=== PATIENT | female | born 1955 | race Caucasian/White ===

== ENCOUNTER → 2017-07-16 | Outpatient (CLI) | payer OTHER ==
[~2017-07-16] MED LIST: ACCUNEB SO1.25 MG/1; ADVAIR 500-501 EACH INH; ALDACTONE50 MG PO; AMITRIPTYLINE H50 M3 PO; ASPIRIN325 PO; ATIVAN0.5 MG PO; AVINZA 30 MG CA30 MG PO; BACTRIM DS TAB1 EACH PO; CELEBREX 200 M200 MG PO; CIPROFLOXACIN500 M3 PO; CLARITIN10 MG; CLARITIN10 MG PO; COMBIVENT; CYCLOBENZAPRINE10 MG PO; CYMBALTA20 MG PO; DALIRESP500 MCG PO; DULCOLAX5 MG PO; DUONEB 2.5-0.5 M3 ML INH; EMEND PO; FISH OIL 1,001000 M2 PO; GLUMETZA500 PO; HYDROCODON-ACE1 EAC8 PO; LASIX 40 MG TAB40 M1 PO; LASIX 40 MG TAB40 M2 PO; LASIX 40 MG TAB40 MG PO; LASTACAFT3 ML; LIDODERM 5%1 PATC1 TRANSDERM; MEDI-PHEDRINE30 MG PO; MEDROL DOSPAK21 TAB PO; MIRALAX17 GM PO; MOBIC7.5 MG PO; MORPHINE SULFAT15 M3 PO; MS CONTIN15 MG PO; NAPROSYN500 MG PO; NASONEX17 GM; NASONEX17 GM NASAL; NEURONTIN 300M300 M2 PO; NORCO 5-325 TA1 EACH PO; OXYCODONE HCL5 M1 PO; POTASSIUM20 PO; PREDNISONE 20 M20 M1 PO; PREDNISONE 5 MG5 M1 PO; RANITIDINE 150150 M1 PO; RESTASIS1 EACH OPHTHALMIC; RESTORIL15 M1 PO; RESTORIL15 MG PO; ROBAXIN 750 MG750 M1 PO; SENNA-LAX8.6 MG PO; SPIRIVA INH; SUDOGEST SINUS1 EACH; TOPROL XL25 MG PO; ULTRAM 50MG TAB50 MG PO; VITAMIN D2000 UNI1 PO; ZANTAC 150MG T150 M1 PO; [UNRECOGNIZED DRUG - REMARK]
== END ==
LOC: RAD 08:43
DX: R06.02 Shortness of breath (principal)

== ENCOUNTER → 2017-09-29 | Outpatient (CLI) | payer OTHER | LOC: CAT 09:44 | DX: C34.90 Malignant neoplasm of unspecified part of unspecified bronchus or lung (principal) ==

== ENCOUNTER 2018-05-15 07:21 | Emergency (ER) | payer OTHER ==
[~2018-05-15] VITALS: Ht 167.6 cm; Wt 105.2 kg
[2018-05-15] MEDS ORDERED: KEFLEX500 M1 PO (09:18)
[2018-05-15 09:54] VITALS: BP 122/66
== END 2018-05-15 09:55 | disposition home or self-care (01) ==
LOC: ER 07:21
DX: S30.1XXA Contusion of abdominal wall, initial encounter (principal); J44.9 Chronic obstructive pulmonary disease, unspecified; E78.00 Pure hypercholesterolemia, unspecified; E28.2 Polycystic ovarian syndrome; F41.9 Anxiety disorder, unspecified; G47.30 Sleep apnea, unspecified; Z87.891 Personal history of nicotine dependence; Z88.8 Allergy status to other drugs, medicaments and biological substances; Z88.1 Allergy status to other antibiotic agents; Z90.2 Acquired absence of lung [part of]; Z85.118 Personal history of other malignant neoplasm of bronchus and lung; W18.40XA Slipping, tripping and stumbling without falling, unspecified, initial encounter; Y93.89 Activity, other specified; Y92.89 Other specified places as the place of occurrence of the external cause; Y99.8 Other external cause status

== ENCOUNTER 2018-05-22 11:31 | Emergency (ER) | payer OTHER ==
[~2018-05-22] VITALS: Ht 165.1 cm; Wt 129.3 kg
[~2018-05-22 11:31] MED LIST changes: +KEFLEX500 M1 PO
[2018-05-22] MEDS ORDERED: BACTROBAN CREAM30 G1 TOP (12:40)
[2018-05-22 14:31] VITALS: BP 114/63
== END 2018-05-22 13:50 | disposition home or self-care (01) ==
LOC: ER 11:31
DX: S93.691A Other sprain of right foot, initial encounter (principal); M25.562 Pain in left knee; J44.9 Chronic obstructive pulmonary disease, unspecified; E78.00 Pure hypercholesterolemia, unspecified; E28.2 Polycystic ovarian syndrome; F41.9 Anxiety disorder, unspecified; G47.30 Sleep apnea, unspecified; Z87.891 Personal history of nicotine dependence; Z88.8 Allergy status to other drugs, medicaments and biological substances; Z88.1 Allergy status to other antibiotic agents; Z48.01 Encounter for change or removal of surgical wound dressing; Z90.2 Acquired absence of lung [part of]; Z85.118 Personal history of other malignant neoplasm of bronchus and lung; W18.39XA Other fall on same level, initial encounter; Y92.003 Bedroom of unspecified non-institutional (private) residence as the place of occurrence of the external cause; Y93.89 Activity, other specified; Y99.8 Other external cause status

== ENCOUNTER 2018-10-08 09:32 | Emergency (ER) | payer OTHER ==
[~2018-10-08] VITALS: Ht 165.1 cm; Wt 116.6 kg
[~2018-10-08 09:32] MED LIST changes: +BACTROBAN CREAM30 G1 TOP
[2018-10-08 10:33] LABS: EOSINOPHILS 3.2 % (0.0-3.0); HEMATOCRIT 40.2 % (37.0-47.0); HEMOGLOBIN 13.3 gm/dL (12.0-15.0); LYMPHOCYTES 34.8 % (24.0-44.0); MCH 27.6 pg (26.0-34.0); MCHC 33.1 g/dL (28.0-37.0); MCV 83.3 fL (80.0-100.0); MONOCYTES 9.5 % (1.0-8.0); PLATELET COUNT 332 thou/uL (150-400); POLYS 51.5 % (36.0-66.0); RBC 4.83 mil/uL (4.20-5.00); RDW 14.6 % (10.5-14.5); WBC 11.7 thou/uL (4.0-11.0)
[2018-10-08 10:43] LABS: CALCIUM 9.6 mg/dL (8.5-10.1)
[2018-10-08 11:32] LABS: URINE BILIRUBIN NEGATIVE (Negative); URINE BLOOD NEGATIVE (Negative); URINE CLARITY CLEAR; URINE COLOR YELLOW; URINE GLUCOSE-RANDOM* NEGATIVE (Negative); URINE KETONES NEGATIVE (Negative); URINE NITRITE-REFLEX NEGATIVE (Negative); URINE PROTEIN (DIPSTICK) NEGATIVE (Negative); URINE SPECIFIC GRAVITY >= 1.030 (1.005-1.035); URINE UROBILINOGEN 0.2 E.U./dl (0.2-1.0)
[2018-10-08 11:33] LABS: URINE LEUKOCYTES-REFLEX 1+ (Negative)
[2018-10-08 11:42] LABS: CASTS None Seen /LPF (None Seen); CRYSTALS None Seen /LPF (None Seen); SQUAMOUS 0-3 Few /LPF (0-3)
[2018-10-08 11:43] LABS: BACTERIA-REFLEX 1-9 Few /HPF (None Seen); URINE RBC None Seen /HPF (0-2); URINE WBC-REFLEX 6-15 Few /HPF (0-5)
[2018-10-08] MEDS ORDERED: PRAVACHOL20 MG PO (12:00)
[2018-10-08] MEDS ORDERED: DALIRESP500 MCG PO (12:00)
[2018-10-08] MEDS ORDERED: ILEVRO1.7 ML OPHTHALMIC (12:01)
[2018-10-08] MEDS ORDERED: SYMPROIC0.2 MG PO (12:01)
[2018-10-08] MEDS ORDERED: STIOLTO RESPIMAT4 GM INH (12:03)
[2018-10-08] MEDS ORDERED: DUREZOL5 ML OPHTHALMIC (12:03)
[2018-10-08] MEDS ORDERED: CELEBREX 200 M200 M1 PO (12:03)
[2018-10-08] MEDS ORDERED: LIORESAL 10 MG10 MG PO (12:04)
[2018-10-08] MEDS ORDERED: GYNE-LOTRIMIN-745 GM TOP (12:04)
[2018-10-08] MEDS ORDERED: CARDIZEM60 MG PO (12:04)
[2018-10-08] MEDS ORDERED: MOVANTIK25 MG PO (12:05)
[2018-10-08] MEDS ORDERED: DOXYCYCLINE 10100 M1 PO (12:05)
[2018-10-08] MEDS ORDERED: KEFLEX500 M1 PO (16:10)
[2018-10-08 17:39] VITALS: BP 122/84
--- NOTE | 2018-10-09 22:38 | EKG ---
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 : 1955 Requested By: Morgan Chavez Order Number: [id number] MD: Dung Cali Measurements Intervals [place] Rate: 70 P: 6 ME: 171 QRS: -2 QRSD: 99 T: 20 QT: 388 QTc: 419 Interpretive Statements Sinus rhythm Baseline wander in lead(s) V2 Compared to ECG 12/19/2014 13:51:16 Sinus tachycardia no longer present Myocardial infarct finding no longer present Electronically Signed On 10-09-2018 22:38:03 CDT by Dung Cali [email or web address] ��������������������������������������������� <ELECTRONICALLY SIGNED> ���������������������������������������� By: Dung Cali MD ��������������������������������������������� 10/09/188 3 Dung Cali MD /LILLY
== END 2018-10-08 23:03 | disposition home or self-care (01) ==
LOC: ER 09:32
PROVIDERS: Emergency Medicine
DX: R42 Dizziness and giddiness (principal); N39.0 Urinary tract infection, site not specified; J44.9 Chronic obstructive pulmonary disease, unspecified; E78.00 Pure hypercholesterolemia, unspecified; F41.9 Anxiety disorder, unspecified; G47.30 Sleep apnea, unspecified; Z87.891 Personal history of nicotine dependence; Z88.1 Allergy status to other antibiotic agents; Z88.8 Allergy status to other drugs, medicaments and biological substances

== ENCOUNTER 2018-10-10 13:50 | Emergency (ER) | payer OTHER ==
[~2018-10-10] VITALS: Ht 165.1 cm; Wt 116.6 kg
[~2018-10-10 13:50] MED LIST changes: +CARDIZEM60 MG PO; +CELEBREX 200 M200 M1 PO; +DOXYCYCLINE 10100 M1 PO; +DUREZOL5 ML OPHTHALMIC; +GYNE-LOTRIMIN-745 GM TOP; +ILEVRO1.7 ML OPHTHALMIC; +LIORESAL 10 MG10 MG PO; +MOVANTIK25 MG PO; +PRAVACHOL20 MG PO; +STIOLTO RESPIMAT4 GM INH; +SYMPROIC0.2 MG PO
[2018-10-10 13:57] VITALS: BP 114/57
== END 2018-10-10 16:18 | disposition home or self-care (01) ==
LOC: ER 13:50
DX: R21 Rash and other nonspecific skin eruption (principal); J44.9 Chronic obstructive pulmonary disease, unspecified; E78.00 Pure hypercholesterolemia, unspecified; G47.30 Sleep apnea, unspecified; Z85.118 Personal history of other malignant neoplasm of bronchus and lung; Z87.891 Personal history of nicotine dependence; Z79.899 Other long term (current) drug therapy; Z88.1 Allergy status to other antibiotic agents; Z88.8 Allergy status to other drugs, medicaments and biological substances

== ENCOUNTER → 2019-11-16 | Outpatient (CLI) | payer OTHER | LOC: RAD 11:44 | PROVIDERS: ATTEND Internal Medicine | DX: J98.4 Other disorders of lung (principal); J44.9 Chronic obstructive pulmonary disease, unspecified ==

== ENCOUNTER 2019-12-30 10:48 | Inpatient (IN) | payer OTHER ==
[~2019-12-30] VITALS: Ht 165.1 cm; Wt 120.7 kg
[2019-12-30 10:49] VITALS: BP 139/76
[2019-12-30 13:19] LABS: ABSOLUTE NEUTROPHILS 3.7 thou/uL (1.4-8.2); BASOPHILS 0.9 % (0.0-2.0); EOSINOPHILS 0.4 % (0.0-3.0); HEMATOCRIT 42.4 % (37.0-47.0); HEMOGLOBIN 14.1 gm/dL (12.0-15.0); LYMPHOCYTES 34.5 % (24.0-44.0); MCH 27.3 pg (26.0-34.0); MCHC 33.2 g/dL (28.0-37.0); MCV 82.3 fL (80.0-100.0); MONOCYTES 10.9 % (1.0-8.0); PLATELET COUNT 224 thou/uL (150-400); POLYS 53.3 % (36.0-66.0); RBC 5.15 mil/uL (4.20-5.00)
[2019-12-30 13:27] LABS: ANION GAP 8 mmol/L (7-16); BUN 14 mg/dL (7-18); CALCIUM 8.7 mg/dL (8.5-10.1); CHLORIDE 101 mmol/L (98-107); CO2 27 mmol/L (21-32); CREATININE 0.9 mg/dL (0.6-1.0); GLUCOSE 77 mg/dL (74-106); POTASSIUM 3.8 mmol/L (3.5-5.1); SODIUM 136 mmol/L (136-145)
[2019-12-30 13:36] LABS: ALBUMIN 3.1 g/dL (3.4-5.0); SGOT 23 U/L (15-37); SGPT 37 U/L (30-65); TOTAL BILIRUBIN 0.3 mg/dL (0.2-1.0); TOTAL PROTEIN 6.7 g/dL (6.4-8.2); TROPONIN-I <0.06 ng/mL (<0.06)
[2019-12-30 15:26] LABS: BE(vivo) -0.9 mmol/L (-2 to +3); HCO3 23.3 mmol/L (22.0-26.0); PCO2 37.4 mmHg (35.0-45.0); PO2 94.2 mmHg (80.0-100.0); pH 7.413 (7.360-7.450); sO2 97.3 % (92.0-98.0)
[2019-12-30 16:46] LABS: CHOLESTEROL 140 mg/dL (<200); HDL CHOLESTEROL 49 mg/dL (>40); LDL CHOLESTEROL 62 mg/dL (<100); TC:HDL 2.9 Ratio (Not establshd); TRIGLYCERIDE 149 mg/dL (<150); VLDL 30 mg/dL (<40)
[2019-12-30 22:19] VITALS: BP 116/84
--- NOTE | 2019-12-30 22:30 | NUR ---
Pt. admitted to the unit from the emergency unit accompanied by staff. She is alert and oriented. Offers no complaints at this time. Bed alarm is on.
[2019-12-30 23:07] VITALS: BP 113/69
[2019-12-30 23:35] VITALS: BP 136/81
[2019-12-31 02:46] LABS: HEMATOCRIT 42.7 % (37.0-47.0); HEMOGLOBIN 14.3 gm/dL (12.0-15.0); MCH 27.7 pg (26.0-34.0); MCHC 33.5 g/dL (28.0-37.0); MCV 82.6 fL (80.0-100.0); RBC 5.18 mil/uL (4.20-5.00); WBC 4.4 thou/uL (4.0-11.0)
[2019-12-31 02:54] LABS: CALCIUM 8.6 mg/dL (8.5-10.1)
[2019-12-31 04:23] VITALS: BP 127/73
--- NOTE | 2019-12-31 06:00 | NUR ---
Pt. rested quietly during the night when checked on during frequent rounds. She offers no c/o pain or shortness of air. Up to the bathroom with assistance of one. Bed alarm is on. Admission assessment and history is completed.
[2019-12-31 08:05] VITALS: BP 143/83
[2019-12-31 11:22] VITALS: BP 138/82
[2019-12-31 15:19] LABS: D-DIMER 0.32 ug/mLFEU (0.19-0.50)
[2019-12-31 15:30] VITALS: BP 114/80
--- NOTE | 2019-12-31 20:35 | NUR ---
Assumed patient care at 0715. Vital signs stable, wheezes auscultated throughout lung byrd, ABD soft and non-tender, BS x's 4. Patient is alert and oriented x's 4, up to bathroom with stand-by assist. O2 is at 2Liters per nc. She refuses to wear SCD's. Patient has been pleasant and cooperative with all tests and treatments; no adverse reactions from medications. Patient started on Lispro Sliding Scale this evening. She was given 4 Units for a blood sugar of 228. Report given to on-coming nurse.
[2020-01-01] MEDS ORDERED: BACLOFEN 10MG T10 MG PO ×2 (02:25→11:08)
[2020-01-01] MEDS ORDERED: CARVEDILOL12.5 MG PO (02:26)
[2020-01-01] MEDS ORDERED: TIZANIDINE HCL4 M1 PO (02:26)
[2020-01-01 05:40] LABS: BASOPHILS 0.2 % (0.0-2.0); HEMATOCRIT 43.4 % (37.0-47.0); HEMOGLOBIN 14.7 gm/dL (12.0-15.0); LYMPHOCYTES 14.2 % (24.0-44.0); MCH 27.7 pg (26.0-34.0); MCHC 33.8 g/dL (28.0-37.0); MONOCYTES 7.1 % (1.0-8.0); PLATELET COUNT 275 thou/uL (150-400); POLYS 78.5 % (36.0-66.0); RBC 5.29 mil/uL (4.20-5.00); RDW 15.3 % (10.5-14.5); WBC 11.5 thou/uL (4.0-11.0)
[2020-01-01 05:50] LABS: FIBRINOGEN 332.1 mg/dL (210-360); PROTIME 10.2 Seconds (9.3-11.4)
[2020-01-01 06:18] LABS: ALBUMIN 2.9 g/dL (3.4-5.0); CREATININE 0.7 mg/dL (0.6-1.0); POTASSIUM 3.9 mmol/L (3.5-5.1); TOTAL BILIRUBIN 0.2 mg/dL (0.2-1.0); TOTAL PROTEIN 6.7 g/dL (6.4-8.2)
--- NOTE | 2020-01-01 06:29 | NUR ---
PT MAKING PROGRESS TOWARDS GOALS. ON O2 AT 3L PER NC. PT REPORTING SHE HAS BEEN ABLE TO MOVE TO THE TOILET AND BACK WITHOUT NEEDING OXYGEN. ENCOURAGED TO WEAR O2 WHILE ASLEEP AND FOR DAY SHIFT TO REASSESS NEED FOR CONTINOUS OXYGEN. OF NOTE, ROOM AIR SAT THIS MORNING 98%. CONTINUE TO MONITOR.
--- NOTE | 2020-01-01 08:29 | EKG ---
[facility] [place] [address] ELECTROCARDIOGRAM REPORT Name: DEO CANAS Room #: 359- ADM IN M.R.#: [id number] Admission: 12/30/19 Attend Phys: Dominguez Daniel MD Discharge: Date of : 57 Report #: [id number] THIS REPORT FOR: cc: Fei Stinson MD, Matthew S. 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: renetta : 1955 Requested By: Noris Padilla Order Number: [id number] MD: Joel Salgado Measurements Intervals [place] Rate: 82 P: 65 LA: 172 QRS: -16 QRSD: 169 T: 47 QT: 402 QTc: 470 Interpretive Statements Sinus rhythm No significant abnormality Compared to ECG 10/08/2018 09:54:22 No significant change was found Electronically Signed On 01-01-2020 8:28:59 CDT by Joel Salgado [email or web address] <ELECTRONICALLY SIGNED> By: Joel Salgado MD, [facility] 01/01/20 0828 1624 1624 Joel Salgado MD, [facility] /EPI
[2020-01-01] MEDS ORDERED: PLAQUENIL200 MG PO (08:35)
[2020-01-01 10:56] VITALS: BP 120/69
[2020-01-01] MEDS ORDERED: DICLOFENAC PO (11:11)
[2020-01-01 15:41] VITALS: BP 132/63
--- NOTE | 2020-01-01 16:36 | NUR ---
INITIAL ASSESSMENT: Received consult. SW reviewed chart and spoke with nursing and attending physician. Pt was admitted from home due to Pneumonia/COPD. Pt is in Enhanced Isolation due to COVID-19. Pt is afebrile and on IV abx. Pt is on 3L of O2. Pt is completing course of Remdesivir. Pt with hx of lung cancer. SW spokoe with pt via phone. Introduced role of SW. Pt is alert/orientated x 4. Pt reports she lives at home alone. Prior to admission, pt was independent with ADLs. Pt has a walker. 5 steps to enter pt's home through the garage. 3 steps to enter the home from the front. No steps inside. Pt has used HH in the past, but is not currently on service with an agency. [facility] the past following knee surgery. Pt's PCP is Dr. Fei Stinson. Pt's father is supportive and involved in her care. Pt requested her best friend, Sonya ([phone]), be added to her contact list. Pt would benefit from therapy evals when able to participate. Pt's goal is to return home when medically stable. SW is following to assist as needed with discharge planning.
[2020-01-01 19:50] VITALS: BP 136/75
--- NOTE | 2020-01-01 20:40 | NUR ---
PT GAIT STEADY...INSTRUCTED TO CALL WITH NEEDS
[2020-01-02 04:12] VITALS: BP 124/61
[2020-01-02 05:55] LABS: HEMATOCRIT 42.7 % (37.0-47.0); HEMOGLOBIN 14.3 gm/dL (12.0-15.0); MCH 27.6 pg (26.0-34.0); MCHC 33.4 g/dL (28.0-37.0); MCV 82.4 fL (80.0-100.0); RBC 5.18 mil/uL (4.20-5.00); RDW 15.1 % (10.5-14.5); WBC 10.1 thou/uL (4.0-11.0)
[2020-01-02 06:02] LABS: CALCIUM 8.9 mg/dL (8.5-10.1); CREATININE 0.7 mg/dL (0.6-1.0); POTASSIUM 3.8 mmol/L (3.5-5.1)
--- NOTE | 2020-01-02 06:09 | NUR ---
PT MAKING PROGRESS TOWARDS GOALS. PT ON ROOM AIR WHILE AWAKE AND WEARS O2 AT 2L PER NC WHEN SLEEPING. HAS DENIED ANY SOA AT REST. REPORTS BEING UP TO THE TOILET AND BACK TO BED WITHOUT ANY SIGNIFICANT SOA. CONTINUE TO MONITOR.
[2020-01-02 07:46] VITALS: BP 123/65
--- NOTE | 2020-01-02 15:10 | NUR ---
SW reviewed chart and spoke with nursing and attending physician. Pt is in Enhanced Isolation due to COVID-19. Pt is afebrile and on 2L of O2. Pt is on IV abx and completing course of Remdesivir (last dose on 01/03). Requested therapy evals to assist with recommendations at time of discharge. Pt [place]-Medicaid [place] and would be able to receive HH RN visits only. [facility] is following to assist as needed with discharge planning.
[2020-01-02 15:55] VITALS: BP 153/73
[2020-01-02 19:31] VITALS: BP 136/65
[2020-01-03 04:42] VITALS: BP 152/81
--- NOTE | 2020-01-03 05:54 | NUR ---
PT MAKING PROGRESS TOWARDS GOALS. ON ROOM AIR THROUGHOUT THE NIGHT. NO REPORTS OF SOA WHILE AT REST OR WHEN UP TO THE TOILET. CONTINUE TO MONITOR.
[2020-01-03 07:05] LABS: CALCIUM 8.9 mg/dL (8.5-10.1); CREATININE 0.7 mg/dL (0.6-1.0); POTASSIUM 4.3 mmol/L (3.5-5.1)
[2020-01-03 08:00] LABS: HEMATOCRIT 37.8 % (37.0-47.0); HEMOGLOBIN 12.6 gm/dL (12.0-15.0); MCH 27.9 pg (26.0-34.0); MCHC 33.4 g/dL (28.0-37.0); MCV 83.5 fL (80.0-100.0); RBC 4.52 mil/uL (4.20-5.00); RDW 15.3 % (10.5-14.5); WBC 10.1 thou/uL (4.0-11.0)
[2020-01-03 08:13] VITALS: BP 126/65
--- NOTE | 2020-01-03 12:50 | NUR ---
ASSUMED PATIENT CARE THIS AM AT APPROXIMATELY 0700. PATIENT AWAKE ALERT ORIENTED, O2 SAT STABLE ON ROOM AIR. NO S/S OF RESPIRATORY DISTRESS/ISSUES. STATES THAT SHE IS DOING WELL, PAIN TOLERABLE ON REGULAR MEDS AT THIS TIME. AWARE OF PLAN FOR DISCHARGE AFTER ANTIVIRAL THERAPY COMPLETED. TOLERATING IV FLUIDS.
[2020-01-03 15:15] VITALS: BP 142/64
--- NOTE | 2020-01-03 16:41 | NUR ---
SW reviewed chart and spoke with nursing and attending physician. Pt is in Enhanced Isolation due to COVID-19. Pt is afebrile and not requiring O2. Pt is on Remdesivir (last dose 01/03). Pt is progressing towards goals for discharge. Discharge home is anticipated for Wednesday. Therapy has discharged pt. SW spoke with pt via phone to discuss discharge plan. Discussed in-home services with pt, at length. Pt has used multiple in-home care/HH agencies and does not want to use any of them again. SW explained that not all HH agencies accept [place]-Medicaid and in-home care will need to be arranged through her Medicaid for homemaker services. Pt asked about changing her PCP to attending physician. SW explained that attending physician does not have an outpatient office and only sees pt while hospitalized. Pt provided SW with contact info for her [employer] complex case manager (Karmen: [phone]). SW left voice message for Karmen. Pt is also interested in life line services at home, due to hx of multiple falls. Pt is agreeable with referral to any HH agency that would be able to come see her. merchandise planner faxed referral to [facility]. They are not accepting COVID positive pts. Referral to be sent to [facility] . BARBARA is following to assist as needed with discharge planning.
--- NOTE | 2020-01-03 16:51 | NUR ---
FAXED REFERRAL TO [facility] HH SPOKE WITH INTAKE AND THEY CANN0T ACCEPT PT DUE TO COVID POSITIVE. FAXED REFERRAL TO [facility] HH RECEIVED CONFIRMATION WILL F/U WITH HH IN THE AM.
--- NOTE | 2020-01-03 17:02 | NUR ---
FAXED REFERRAL TO [facility] HH RECEIVED CONFIRMATION WILL F/U WITH HH IN THE AM.
[2020-01-03 21:25] VITALS: BP 134/60
[2020-01-04 04:43] VITALS: BP 142/66
--- NOTE | 2020-01-04 07:47 | NUR ---
ASSUME CARE 1900. PT/VITALS STABLE. CHRONIC BACK PAIN INDICATED WITH PAIN MEDS AND MUSCLE RELAXANTS FOR RELIEF. ASSESSMETN CHARTED. PROGRESSING WLL WITH POC. PLAN IS TO COMPETE REMDESIVIR DOSES AND POSSIBLE DISCHARGE BY WEDNESDAY. WILL CONTINUE TO MONITOR AND FOLLOW WITH POC
[2020-01-04 08:11] VITALS: BP 127/76
--- NOTE | 2020-01-04 16:12 | NUR ---
BARBARA reviewed chart and spoke with nursing and attending physician. Pt remains in Enhanced Isolation due to COVID-19. Pt is afebrile and not requiring O2. Pt is on IV abx. Pt's last dose of Remdesivir is to be given this evening. Plan for discharge home tomorrow with services. [facility] is able to accept pt on service upon discharge. Pt has her car in the parking lot to drive herself home. BARBARA is following to assist as needed with discharge planning.
[2020-01-04 19:48] VITALS: BP 124/64
--- NOTE | 2020-01-05 02:54 | NUR ---
ASSESSMENTS CHARTED, MEDS GIVEN CHARTED. PATIENT UP AT DANA IN ROOM DURING SHIFT ON ROOM AIR. PATIENT IS HAVING A RASH THAT IS BRIGHT RED AND WARM TO DIFFERENT PARTS OF HER BODY THEN IT DISSAPATES AND REAPPEARS SOMEWHERE ELSE. AWARE OF RASH. PATIENT HAS FINISHED HER REMDESIVIR TREATMENTS. PLAN IS TO RETURN HOME IN THE MORNING. FALL PRECAUTIONS IN PLACE DURING SHIFT. PATIENT HAS CHRONIC PAIN ISSUES WITH SCHEDULED AND PRN MEDS AVAILABLE.
[2020-01-05 05:26] VITALS: BP 120/58
[2020-01-05 07:40] VITALS: BP 135/68
[2020-01-05 10:01] VITALS: BP 135/68
[2020-01-05 11:15] VITALS: BP 126/59
--- NOTE | 2020-01-05 12:11 | NUR ---
DISCHARGE NOTE: SW reviewed chart and spoke with nursing and attending physician. Pt is in Enhanced Isolation due to COVID-19. Pt is afebrile and not requiring O2. Pt completed course of Remdesivir. Pt is medically stable to discharge home today with services. BARBARA provided update to intake at [facility]. Awaiting final discharge orders/summary at this time. Pt states her car is in the parking lot and is planning to drive herself home. SW spoke with pt via phone to discuss discharge. Lengthy discussion regarding discharge plan. Pt states she needs someone to come clean her house. SW explained that HH will not be able to do house cleaning. Pt said she has been on service with [facility] for homemaker services. Pt stopped her services with [facility] prior to admission, because she did not like the caregiver they sent out. However, pt states she will call them back and get their services restarted, as she needs house cleaning and errands to be completed. SW explained that she will need to arrange her Medicaid in home services with her case loader operator through the [facility]. As will only cover HH RN services. Pt wants to follow up with Dr. Michael Lyon after discharge. Pt's PCP is Dr. Stinson. SW will fax finalized discharge orders/summary to HH when available. Contact info for HH placed in pt's discharge summary. BARBARA is following to assist with discharge.
[2020-01-05] MEDS ORDERED: CARDIZEM60 MG PO (12:42)
[2020-01-05] MEDS ORDERED: ACETAMINOPHEN325 M1 PO (12:42)
[2020-01-05] MEDS ORDERED: HYDROCODON-ACE1 EAC7 PO (12:42)
[2020-01-05] MEDS ORDERED: PROVENTIL HFA6.7 G1 INH (12:42)
[2020-01-05 13:06] VITALS: BP 135/68
[2020-01-05 13:30] VITALS: BP 135/68
== END 2020-01-05 16:01 | disposition home health service (06) | DRG 177 ==
LOC: ER 10:48 → EROBS 15:03 → 3W 23:05
PROVIDERS: Internal Medicine; Physician Assistant; Specialist; ADMIT Hospitalist; ATTEND Hospitalist
PROC: XW033E5 Introduction of Remdesivir Anti-infective into Peripheral Vein, Percutaneous Approach, New Technology Group 5 (ICD-10-PCS; principal; 2019-12-31)
PROC: XW033E5 Introduction of Remdesivir Anti-infective into Peripheral Vein, Percutaneous Approach, New Technology Group 5 (ICD-10-PCS; 2020-01-01)
DX: U07.1 COVID-19 (principal); J96.01 Acute respiratory failure with hypoxia; J12.89 Other viral pneumonia; D68.8 Other specified coagulation defects; Z68.41 Body mass index [BMI] 40.0-44.9, adult; J44.0 Chronic obstructive pulmonary disease with (acute) lower respiratory infection; E78.00 Pure hypercholesterolemia, unspecified; F41.9 Anxiety disorder, unspecified; E78.5 Hyperlipidemia, unspecified; G47.33 Obstructive sleep apnea (adult) (pediatric); E11.9 Type 2 diabetes mellitus without complications; E28.2 Polycystic ovarian syndrome; J30.2 Other seasonal allergic rhinitis; D69.6 Thrombocytopenia, unspecified; G89.4 Chronic pain syndrome; E66.01 Morbid (severe) obesity due to excess calories; Z79.891 Long term (current) use of opiate analgesic; Z85.118 Personal history of other malignant neoplasm of bronchus and lung; Z88.1 Allergy status to other antibiotic agents; Z88.8 Allergy status to other drugs, medicaments and biological substances; Z87.891 Personal history of nicotine dependence; Z79.899 Other long term (current) drug therapy
CPT/HCPCS: 10879

== ENCOUNTER → 2021-04-21 | Outpatient (CLI) | payer OTHER ==
[~2021-04-21] MED LIST changes: +ACETAMINOPHEN325 M1 PO; +BACLOFEN 10MG T10 MG PO; +CARVEDILOL12.5 MG PO; +DICLOFENAC PO; +HYDROCODON-ACE1 EAC7 PO; +PLAQUENIL200 MG PO; +PROVENTIL HFA6.7 G1 INH; +TIZANIDINE HCL4 M1 PO
== END ==
LOC: RAD 13:32
PROVIDERS: ATTEND Internal Medicine
DX: J44.9 Chronic obstructive pulmonary disease, unspecified (principal); J98.11 Atelectasis